=== PATIENT | male | born 1995 | race Caucasian/White ===

== ENCOUNTER 2018-12-18 08:46 | Emergency (ER) | payer OTHER ==
[~2018-12-18] VITALS: Ht 185.4 cm; Wt 95.5 kg
[~2018-12-18 08:46] MED LIST: NO HOME MEDICATIONS
[2018-12-18 08:53] VITALS: BP 131/83; TEMP 99
[2018-12-18] MEDS ORDERED: DOXYCYCLINE 10100 MG PO (09:17)
[2018-12-18 09:23] VITALS: PULSE 94
== END 2018-12-18 09:23 | disposition home or self-care (01) ==
LOC: COL.ER 08:46
DX: L02.31 Cutaneous abscess of buttock (principal); F17.210 Nicotine dependence, cigarettes, uncomplicated

== ENCOUNTER → 2019-11-03 | Outpatient (CLI) | payer OTHER ==
[~2019-11-03] MED LIST changes: +DOXYCYCLINE 10100 MG PO
== END ==
LOC: COL.RAD 12:53
DX: M25.461 Effusion, right knee (principal)

== ENCOUNTER → 2022-04-10 | Outpatient (CLI) | payer OTHER | LOC: COL.RAD 09:48 | DX: E05.90 Thyrotoxicosis, unspecified without thyrotoxic crisis or storm (principal) | CPT/HCPCS: A9516 ==